=== PATIENT | female | born 2000 | race Caucasian/White ===

== ENCOUNTER 2021-01-30 09:06 | Emergency (ER) | payer BC ==
[~2021-01-30] VITALS: Ht 157.5 cm; Wt 73.0 kg
[2021-01-30] MEDS ORDERED: HYDROCODONE/ACETAMINOPHEN 5/325MG TABLET PO ONE (10:15)
[2021-01-30] MEDS ORDERED: IBUP-2028 MT (11:31)
[2021-01-30] MEDS ORDERED: HYDR-4001 MT (11:32)
[2021-01-30 12:03] VITALS: BP 131/68
== END 2021-01-30 12:07 | disposition home or self-care (01) ==
LOC: ER 09:06
DX: S80.02XA Contusion of left knee, initial encounter (principal); Z79.899 Other long term (current) drug therapy; X58.XXXA Exposure to other specified factors, initial encounter; Y93.39 Activity, other involving climbing, rappelling and jumping off; Y92.89 Other specified places as the place of occurrence of the external cause; Y99.8 Other external cause status
CPT/HCPCS: 29505; 73560; 81025; 99283; Z7610